=== PATIENT | male | born 1950 | race Caucasian/White ===

== ENCOUNTER 2024-06-26 16:42 | Inpatient (IN) ==
[2024-06-26 18:10] LABS: Basophils # (auto) 0.12 K/uL (0.00-0.20); Eosinophils # (auto) 0.38 K/uL (0.00-0.50); Hemoglobin 14.7 g/dl (14.0-18.0); Immature Granulocytes # (auto) 0.09 K/uL (0.01-0.20); Immature Granulocytes % (auto) 0.7 %; Lymphocytes % (auto) 17.6 %; Mean Corpuscular Hemoglobin 27.3 pg (25.0-34.0); Mean Corpuscular Hgb Conc 31.3 g/dL (32.0-36.0); Mean Corpuscular Volume 87.2 fL (80.0-100.0); Mean Platelet Volume 12.3 fL (9.4-12.4); Monocytes # (auto) 1.37 K/uL (0.11-0.59); Neutrophils # (auto) 8.31 K/uL (1.40-6.50); Neutrophils % (auto) 66.7 %; Platelet Count 126 K/uL (130-400); RDW Standard Deviation 44.8 fL (36.4-46.3); Red Blood Count 5.39 M/uL (4.70-6.10); White Blood Count 12.47 K/ul (4.8-10.8)
[2024-06-26 18:13] LABS: INR 1.1 (0.9-1.1); Partial Thromboplastin Ratio 0.7; Partial Thromboplastin Time 20 Seconds (21-31); Prothrombin Time 11.6 Seconds (9.0-12.0)
[2024-06-26 18:16] LABS: Alanine Aminotransferase 31 U/L (7-52); Albumin Globulin Ratio 0.6 (0.9-2); Albumin Level 3.8 gm/dl (3.4-5.0); Alkaline Phosphatase 192 U/L (34-104); Anion Gap 8 (3-11); Aspartate Aminotransferase 36 U/L (13-39); Bilirubin,Total 0.7 mg/dl (0.2-1.0); Blood Urea Nitrogen 37 mg/dl (6-23); Carbon Dioxide 34 mmol/L (21-32); Chloride 103 mmol/L (98-107); Est GFR (African American) 35.7 ml/min; Est GFR (Non-African American) 30.8 ml/min; Globulin 5.9 gm/dl (2.5-4.0); Glucose 101 mg/dl (70-99(Fasting)); Potassium 3.5 mmol/L (3.5-5.1); Sodium 145 mmol/L (136-145); Total Protein 9.7 gm/dl (6.0-8.3)
[2024-06-26] MEDS: SODIUM CHLORIDE 0.9% 500 ML IV ONE (18:40)
--- NOTE | 2024-06-26 19:05 | XRay Report ---
XR chest 1V portable CLINICAL HISTORY: fall TECHNIQUE: Single frontal radiograph of the chest was obtained. Comparison: None available at the time of this dictation. FINDINGS: No lines and tubes are seen. Calcified aortic knob is seen. The lungs are clear. No evidence of pleur al effusion or pneumothorax. IMPRESSION: No acute chest disease. ACT 112: Negative or not required by law. Electronically signed by: Xavier Hodge M.D. 06/26/2024 7:03 PM
[2024-06-26 19:12] LABS: Magnesium 2.3 mg/dl (1.7-2.4); Phosphorus 4.2 mg/dl (2.5-4.9)
[2024-06-26 19:16] LABS: Calcium 14.6 mg/dl (8.6-10.3)
[2024-06-26] MEDS: SODIUM CHLORIDE 0.9% 1,000 ML IV SCH (19:42)
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
[2024-06-26 20:03] LABS: Appearance Urine Cloudy (Clear); Bacteria Urine Automated None Seen (None Seen); Bilirubin Urine Negative (Negative); Blood Urine 2+ (Negative); Cast Urine Automated >20 /lpf (0-2); Color Urine Yellow; Glucose Urine UA Negative (Negative); Hyaline Casts Urine Present /lpf (None Presnt); Ketones Urine Negative (Negative); Leukocyte Esterase Urine 1+ (Negative); Nitrite Urine Negative (Negative); Protein Urine 2+ (Negative); Specific Gravity Urine 1.016 (1.000-1.030); Urobilinogen Urine Negative (Negative)
--- NOTE | 2024-06-26 21:04 | CT Scan Report ---
Exam(s): CT HEAD Without Contrast EXAM: CT Head Without Intravenous Contrast CLINICAL HISTORY: Reason for exam: fall. TECHNIQUE: Axial computed tomography images of the head/brain without intravenous contrast. CTDI is 36.67 mGy and DLP is 547.75 mGy-cm. Automated exposure control was utilized for the study. A dose lowering technique was utilized adhering to the principles of ALARA. COMPARISON: No relevant prior studies available. FINDINGS: Brain: Age-related parenchymal volume loss. Mild chronic small vessel ischemic change. Walter-white matter differentiation maintained. No hemorrhage, mass effect, parenchymal edema, or midline shift. Ventricles: Unremarkable. No hydrocephalus. Bones/joints: Unremarkable. No acute fracture. Soft tissues: Unremarkable. Vasculature: Intracranial atherosclerosis. Intracranial atherosclerosis. Sinuses: Trace mucosal thickening in the paranasal sinuses. Mastoid air cells: Unremarkable as visualized. No mastoid effusion. IMPRESSION: No acute intracranial process. Electronically signed by: Eliecer Franklin M.D. 06/26/24 21:03 PM
[2024-06-26] MEDS: OLANZapine ZYDIS 5 MG ORALLY DIS. TAB PO STA (21:12)
--- NOTE | 2024-06-26 22:25 | Billing Data ---
Date of Service June 26, 2024 Coding Level of Care Code 18354 INT INP/OBS CARE
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
[2024-06-26] MEDS ORDERED: ACETAMINOPHEN 325 MG TAB PO PRN (22:34)
[2024-06-26] MEDS: PLASMA-LYTE A 1,000 ML IV SCH (22:37)
[2024-06-26] MEDS: OLANZapine ZYDIS 5 MG ORALLY DIS. TAB PO PRN (23:52)
[2024-06-27 10:06] LABS: Basophils # (auto) 0.12 K/uL (0.00-0.20); Basophils % (auto) 1.1 %; Eosinophils # (auto) 0.73 K/uL (0.00-0.50); Eosinophils % (auto) 6.8 %; Hematocrit (blood only) 41.7 % (42.0-52.0); Hemoglobin 13.2 g/dl (14.0-18.0); Immature Granulocytes # (auto) 0.04 K/uL (0.01-0.20); Immature Granulocytes % (auto) 0.4 %; Lymphocytes # (auto) 2.56 K/uL (1.20-3.40); Lymphocytes % (auto) 23.9 %; Mean Corpuscular Hemoglobin 27.5 pg (25.0-34.0); Mean Corpuscular Hgb Conc 31.7 g/dL (32.0-36.0); Mean Corpuscular Volume 86.9 fL (80.0-100.0); Mean Platelet Volume 12.5 fL (9.4-12.4); Monocytes % (auto) 10.3 %; Neutrophils # (auto) 6.18 K/uL (1.40-6.50); Neutrophils % (auto) 57.5 %; Platelet Count 101 K/uL (130-400); RDW Coefficient of Variation 13.9 % (11.5-14.5); RDW Standard Deviation 44.5 fL (36.4-46.3); White Blood Count 10.73 K/ul (4.8-10.8)
[2024-06-27 10:26] LABS: BUN Creatinine Ratio 21.5 (10-20); Calcium 12.5 mg/dl (8.6-10.3); Creatinine Clr Calc Pharmacy 36.1 ml/min; Est GFR (African American) 42.6 ml/min; Est GFR (Non-African American) 36.8 ml/min; Potassium 3.4 mmol/L (3.5-5.1)
[2024-06-27] MEDS: NSS + 20MEQ KCL 20 MEQ/1,000 ML BAG IV SCH (17:24)
--- NOTE | 2024-06-27 19:48 | Hospitalist Progress Note ---
Date of Service June 27, 2024 Assessment & Plan (1) Hypercalcemia: Plan: improved but still high with his total protein and globulin being elevated, anemia/thrombocytopenia present, weight loss, etc this is all worrisome for a bone marrow disorder such as multiple myeloma SPEP/UPEP sent today intact PTH is low ruling out hyperparathyroidism 25-OH vit D level is not elevated cont copious isotonic fluid cont serial BMPs likely to need oncology evaluation, bone marrow bx, immunofixation, etc. doubt sarcoid although KD dispatched could consider PTH-related peptide but will defer since the available info suggests bone marrow disease as noted above (2) LATOSHA (acute kidney injury): Plan: BUN 37, creatinine 2.05 at admission most recent baseline Cr of 0.91 in [address] although obstruction unlikely Cr is improved today to <2 Cont copious hydration BMP am Consider imaging of urinary tract with u/s or CT (3) Agitation: Plan: likely due to #1 cont zyprexa prn (4) Leukocytosis: Plan: along with mild fever urine cx negative COVID returned negative cxr w/o obvious pneumonia if fevers persist consider more advanced imaging, tick-borne work-up, etc (5) Acute metabolic encephalopathy: Plan: likely 2nd to #1 above supportive care antipsychotics for agitation mitts for hands to prevent self-injury and pulling at IVs (6) Fever: Plan: etiology? could be malignancy-related consider tickborne work-up (lyme, anaplasmosis, etc) consider full biofire resp panel consider dental abscess given his severe dental decay Plan VTE PPx: SCDs; will hold chemical DVT PPx in the setting of thrombocytopenia h/o elevated PSA - if advanced imaging is obtained (ie - CTs) and there is evidence of malignancy consider repeat PSA as PSA was elevated at 7.6 in 2020 at his most recent outpatient appt, however, pt declined getting more w/u for t he high PSA updated pt's son extensively by phone this evening Admission and Anticipated Discharge Date Admission Date: June 26, 2024 Subjective patient confused all day today pulled out several IVs per staff requiring soft mitts on hands to prevent self-injury, pulling at IVs, etc during my rounds he was sleeping initially did open his eyes to his name being called but could not provide meaningful history or ROS he did deny pain was able to tell me what town he is from but otherwise did not know he was in the hospital speech very difficult to understand at times I spoke with pt's son by phone -- he reports his father had been getting progressively more confused over several weeks; poor appetite; weight loss; downward decline for weeks Review of Systems Review of Systems: Unobtainable due to cognitive status Physical Exam Physical Exam: gen - looks sick, confused, disheveled mouth - MM dry, VERY POOR DENTITION with odor from mouth neck - no JVD heart - RRR, s1 s2, no murmur lungs - CTA b/l abd - soft NT ND BS+; ?mild splenomegaly? ext - no edema, pulses 2+ b/l musculo - mitts on hands b/l, moves all 4 limbs spontaneously psych - oriented to person only Results & Data Results & Data Vital Signs (Past 12 Hours) Vital Signs Temp Pulse Pulse Resp BP Pulse Ox O2 Del Method 06/27/24 17:25 37.2 C 80 18 159/83 H 92 Room Air 06/27/24 15:19 77 06/27/24 08:07 37.8 C H 90 18 126/77 90 Room Air Laboratory Results Laboratory Results - last 24 hr 06/26/24 06/26/24 06/26/24 17:29 18:35 19:33 WBC RBC Hgb Hct MCV MCH MCHC RDW Std Deviation RDW Coeff of Zach Plt Count MPV Immature Gran % (Auto) Neut % (Auto) Lymph % (Auto) [place] % (Auto) Eos % (Auto) Baso % (Auto) Neut # (Auto) Lymph # (Auto) [place] # (Auto) Eos # (Auto) Baso # (Auto) Immature Gran # (Auto) Sodium Potassium Chloride Carbon Dioxide Anion Gap BUN Creatinine Est Cr Clr Drug Dosing Est GFR ( Amer) Est GFR (Non-Af Amer) BUN/Creatinine Ratio Glucose Calcium Total Protein (PEP) Albumin (PEP) Ojpum-5-Bvszcdtzx Uckas-1-Qlkvawncl Rbvm-8-[place]ibcuway Plmp-0-Tfrnreyg Gamma Globulins Monoclonal Peak 3 Ser Monoclonl Protein Ser Monoclonal Prot 2 PEP Interpretation Angiotensin Convert Enz 25-OH Vitamin D Total 31.2 PTH Intact Urine Color Yellow Urine Appearance Cloudy A Urine pH 5.0 Ur Specific [place] 1.016 Urine Protein 2+ H Urine Glucose (UA) Negative Urine Ketones Negative Urine Blood 2+ H Urine Nitrite Negative Urine Bilirubin Negative Urine Urobilinogen Negative Ur Leukocyte Esterase 1+ H Urine WBC (Auto) 11-20 H Urine RBC (Auto) 6-10 H U Hyaline Cast (Auto) >20 H U Epithel Cells (Auto) 3-5 H Urine Bacteria (Auto) None Seen Hyaline Casts Present A SARS-CoV-2, RNA, NAAT Ref Lab Test Result Cancelled 06/27/24 06/27/24 09:33 Unknown WBC 10.73 RBC 4.80 Hgb 13.2 L Hct 41.7 L MCV 86.9 MCH 27.5 MCHC 31.7 L RDW Std Deviation 44.5 RDW Coeff of Zach 13.9 Plt Count 101 L MPV 12.5 H Immature Gran % (Auto) 0.4 Neut % (Auto) 57.5 Lymph % (Auto) 23.9 [place] % (Auto) 10.3 Eos % (Auto) 6.8 Baso % (Auto) 1.1 Neut # (Auto) 6.18 Lymph # (Auto) 2.56 [place] # (Auto) 1.10 H Eos # (Auto) 0.73 H Baso # (Auto) 0.12 Immature Gran # (Auto) 0.04 Sodium 149 H Potassium 3.4 L Chloride 111 H Carbon Dioxide 32 Anion Gap 6 BUN 38 H Creatinine 1.77 H Est Cr Clr Drug Dosing 36.1 Est GFR ( Amer) 42.6 Est GFR (Non-Af Amer) 36.8 BUN/Creatinine Ratio 21.5 H Glucose 93 Calcium 12.5 H* D Total Protein (PEP) Pending Albumin (PEP) Pending Mksdn-6-Oskepchat Pending Syepj-6-Yjzpjfbay Pending Ycpj-0-Xsgzjzap Pending Ykuz-2-Bdsoryiv Pending Gamma Globulins Pending Monoclonal Peak 3 Pending Ser Monoclonl Protein Pending Ser Monoclonal Prot 2 Pending PEP Interpretation Pending Angiotensin Convert Enz Pending 25-OH Vitamin D Total PTH Intact 8.8 L Urine Color Urine Appearance Urine pH Ur Specific [place] Urine Protein Urine Glucose (UA) Urine Ketones Urine Blood Urine Nitrite Urine Bilirubin Urine Urobilinogen Ur Leukocyte Esterase Urine WBC (Auto) Urine RBC (Auto) U Hyaline Cast (Auto) U Epithel Cells (Auto) Urine Bacteria (Auto) Hyaline Casts SARS-CoV-2, RNA, NAAT NEGATIVE Ref Lab Test Result PG Care Time/CCT Total # of Minutes Spent Total Time Spent with Patient: Total time spent is greater than 50% in coordination of care (as documented) at patient's floor/unit and/or counseling patient: Coding Level of Care Code 33828 SUB INP/OBS CARE 3/50MIN Diagnoses Hypercalcemia E83.52 LATOSHA (acute kidney injury) N17.9 Agitation R45.1 Leukocytosis D72.829 Acute metabolic encephalopathy G93.41 Fever R50.9
--- NOTE | 2024-06-27 21:33 | Electrocardiogram Report ---
Test Reason : Blood Pressure : */* mmHG Vent. Rate : 89 BPM Atrial Rate : 89 BPM P-R Int : 164 ms QRS Dur : 104 ms QT Int : 348 ms P-R-T Axes : -9 -9 -42 degrees QTcB Int : 423 ms Poor data quality, interpretation may be adversely affected Normal sinus rhythm Inferior infarct , age undetermined Cannot rule out Anterior infarct , age undetermined Nonspecific T wave abnormality Abnormal ECG No previous ECGs available Confirmed by Hernan Delacruz ([id number]) on 06/27/2024 9:33:40 PM Referred By: Confirmed By: Hernan Delacruz
[2024-06-27] MEDS ORDERED: cefTRIAXone SODIUM 1,000 MG/50 ML BAG IV ONE (23:45)
[2024-06-28] MEDS: ACETAMINOPHEN 1,000 MG/100 ML VIAL IV PRN (00:02)
[2024-06-28] MEDS: cefTRIAXone SODIUM 1,000 MG/50 ML BAG IV SCH (00:03)
[2024-06-28 08:38] LABS: Basophils # (auto) 0.12 K/uL (0.00-0.20); Basophils % (auto) 1.2 %; Eosinophils # (auto) 0.57 K/uL (0.00-0.50); Eosinophils % (auto) 5.6 %; Hematocrit (blood only) 40.6 % (42.0-52.0); Hemoglobin 13.1 g/dl (14.0-18.0); Immature Granulocytes # (auto) 0.05 K/uL (0.01-0.20); Immature Granulocytes % (auto) 0.5 %; Lymphocytes # (auto) 2.63 K/uL (1.20-3.40); Lymphocytes % (auto) 25.8 %; Mean Corpuscular Hemoglobin 28.1 pg (25.0-34.0); Mean Corpuscular Hgb Conc 32.3 g/dL (32.0-36.0); Mean Corpuscular Volume 86.9 fL (80.0-100.0); Mean Platelet Volume 11.7 fL (9.4-12.4); Monocytes # (auto) 1.02 K/uL (0.11-0.59); Neutrophils # (auto) 5.79 K/uL (1.40-6.50); Neutrophils % (auto) 56.9 %; Platelet Count 108 K/uL (130-400); RDW Coefficient of Variation 14.2 % (11.5-14.5); RDW Standard Deviation 45.2 fL (36.4-46.3); Red Blood Count 4.67 M/uL (4.70-6.10); White Blood Count 10.18 K/ul (4.8-10.8)
--- NOTE | 2024-06-28 09:09 | XRay Report ---
XR chest 1V portable CLINICAL HISTORY: fever, mild hypoxia; ?pneumonia TECHNIQUE: Single frontal radiograph of the chest was obtained. Comparison: Comparison is made to chest radiograph 06/26/2024 FINDINGS: No lines and tubes are seen. Calcified aortic knob is seen. The lungs are clear. No evidence of pleur al effusion or pneumothorax. IMPRESSION: No acute abnormalities and in particular no radiographic evidence of pneumonia. ACT 112: Negative or not required by law. Electronically signed by: Xavier Hodge M.D. 06/28/2024 9:08 AM
[2024-06-28 09:56] LABS: Calcium 11.9 mg/dl (8.6-10.3); Potassium 3.5 mmol/L (3.5-5.1)
[2024-06-28 10:02] LABS: Creatinine Clr Calc Pharmacy 34.9 ml/min; Est GFR (African American) 40.9 ml/min; Est GFR (Non-African American) 35.3 ml/min
--- NOTE | 2024-06-28 11:16 | Hospitalist Progress Note ---
Date of Service June 28, 2024 Assessment & Plan (1) Hypercalcemia: Plan: improving but still high with his total protein and globulin being elevated, anemia/thrombocytopenia present, weight loss, etc this is all worrisome for a bone marrow disorder such as multiple myeloma SPEP/UPEP sent & pending intact PTH is low ruling out hyperparathyroidism 25-OH vit D level is not elevated cont IV Fluids cont serial BMPs likely to need oncology evaluation, bone marrow bx, immunofixation, etc. doubt sarcoid although KD level dispatched could consider PTH-related peptide but will defer since the available info suggests bone marrow disease as noted above renal function is borderline to start IV bisphosphonate therapy at this time will start calcitonin 4 units/KG q12h for temporary Rx (2) LATOSHA (acute kidney injury): Plan: BUN 37, creatinine 2.05 at admission most recent baseline Cr of 0.91 in [address] a/p today Solis remains Cr has improved to 1.8 with hydration but has stalled at such Cont IV fluids Cont serial BMP checks (3) Agitation: Plan: likely due to #1 cont zyprexa prn (4) Leukocytosis: Plan: along with ongoing mild fevers urine cx negative COVID negative cxr w/o obvious pneumonia lyme negative anaplasmosis & babesia screens negative elected to obtain CT chest/abd/pelvis to look for malignancy and other causes of fever - CT a/p with ?pancreatitis, otherwise negative; CT chest report pending (5) Acute metabolic encephalopathy: Plan: likely 2nd to #1 above if pancreatitis is truly present that could contribute hypernatremia will cause confusion/lethargy cont supportive care restraint order renewed -- soft mitts for hands needed to prevent self-injury and pulling at IVs (6) Fever: Plan: etiology? could be malignancy-related could be 2nd to pancreatitis consider full biofire resp panel consider dental abscess given his severe dental decay cont rocephin IV empirically while awaiting blood cx's thus far blood cx's are negative (7) Hypernatremia: Plan: change fluids to hypotonic - use 1/2 NS serial BMPs (8) Abnormal abdominal CT scan: Plan: ?pancreatitis on CT a/p today certainly hypercalcemia can cause pancreatitis but his lipase was wnl this morning further, no obvious abd pain or other GI symptoms uncertain of significance of the CT findings if he has pancreatitis he is essentially NPO and receiving copious IV hydration (9) Elevated blood pressure reading without diagnosis of hypertension: Plan: SBPs remain very high - 180s/190s 2nd to hypercalcemia? does patient have pre-existing essential HTN? will start metoprolol 5mg IV q6h scheduled will also add hydralazine 5mg IV q8h prn SBP >185 Plan updated pt's son extensively by phone 06/27/24 will update him again tomorrow Admission and Anticipated Discharge Date Admission Date: June 26, 2024 Subjective patient sleeping soundly / lethargic during the visit unable to provide any meaningful history or ROS when he wakes it is for brief periods of time and he is very confused no oral intake tele - stable, NSR overnight Review of Systems Review of Systems: Unobtainable due to cognitive status Physical Exam Physical Exam: gen - lethargic, confused, somnolent - but comfortable mouth - MM remain dry, VERY POOR DENTITION with odor from mouth neck - no JVD heart - RRR, s1 s2, no murmur lungs - CTA b/l, mildly decreased BS basees abd - soft NT ND BS+ ext - no edema, pulses 2+ b/l musculo - mitts on hands b/l Results & Data Results & Data Vital Signs (Past 12 Hours) Vital Signs Temp Pulse Pulse Resp BP Pulse Ox O2 Del Method 06/28/24 09:18 37.9 C H 90 18 166/88 H 92 Room Air 06/28/24 07:41 38.5 C H 97 H 18 193/93 H 90 Room Air 06/28/24 07:21 91 H 06/28/24 02:00 Room Air Laboratory Results Laboratory Results - last 24 hr 06/28/24 06/28/24 07:52 19:18 WBC 10.18 RBC 4.67 L Hgb 13.1 L Hct 40.6 L MCV 86.9 MCH 28.1 MCHC 32.3 RDW Std Deviation 45.2 RDW Coeff of Zach 14.2 Plt Count 108 L MPV 11.7 Immature Gran % (Auto) 0.5 Neut % (Auto) 56.9 Lymph % (Auto) 25.8 [place] % (Auto) 10.0 Eos % (Auto) 5.6 Baso % (Auto) 1.2 Neut # (Auto) 5.79 Lymph # (Auto) 2.63 [place] # (Auto) 1.02 H Eos # (Auto) 0.57 H Baso # (Auto) 0.12 Immature Gran # (Auto) 0.05 VBG pH 7.45 H VBG pCO2 42 VBG pO2 56 VBG HCO3 29 VBG O2 Saturation 90.4 VBG Base Excess 4.7 Sodium 155 H 156 H* Potassium 3.5 3.6 Chloride 121 H 124 H Carbon Dioxide 29 27 Anion Gap 5 5 BUN 44 H 41 H Creatinine 1.83 H 1.81 H Est Cr Clr Drug Dosing 34.9 35.3 Est GFR ( Amer) 40.9 41.5 Est GFR (Non-Af Amer) 35.3 35.8 BUN/Creatinine Ratio 24.0 H 22.7 H Glucose 81 119 H Calcium 11.9 H 11.8 H Lipase 17 TSH 0.721 Anaplasma Smear See Comment Babesia Smear See Comment Lyme Disease Screen Negative Diagnostic Findings Chest X-Ray 06/28/24 07:57 XR chest 1V portable CLINICAL HISTORY: fever, mild hypoxia; ?pneumonia TECHNIQUE: Single frontal radiograph of the chest was obtained. Comparison: Comparison is made to chest radiograph 06/26/2024 FINDINGS: No lines and tubes are seen. Calcified aortic knob is seen. The lungs are clear. No evidence of pleural effusion or pneumothorax. IMPRESSION: No acute abnormalities and in particular no radiographic evidence of pneumonia. ACT 112: Negative or not required by law. Electronically signed by: Xavier Hodge M.D. 06/28/2024 9:08 AM Abdomen/Pelvis CT 06/28/24 11:16 CT abd pelvis wo con CLINICAL HISTORY: fever, altered MS, possible multiple myeloma TECHNIQUE: Helical axial images of the abdomen and pelvis were obtained. Automated dose lowering techniques and/or adjustment according to patient size were utilized for this exam. This exam was performed without intravenous contrast. CT DOSE: 2480.81 mGy.cm COMPARISON: None available at the time of this dictation. FINDINGS: Lower chest: For findings above the diaphragm, please see CT chest performed same day. Liver: Unremarkable. No focal lesions are seen. Gallbladder and biliary tree: No calcified gallstones. Normal caliber wall. No intra- or extrahepatic biliary ductal dilation. Pancreas: Fat stranding is seen about the pancreatic tail. Spleen: Unremarkable. Adrenals: Unremarkable. Kidneys and ureters: Nonobstructive nephrolithiasis is seen. Bladder: Solis catheter is seen. Reproductive organs: Prostatomegaly is seen. Bowel: Diverticulosis is seen without diverticulitis. The appendix is normal. Lymph nodes Retroperitoneal: Subcentimeter lymph nodes are noted. Pelvic: Unremarkable. Mesenteric: Unremarkable. Peritoneum: Normal. Vessels: Atherosclerotic calcifications are seen. Abdominal wall: Left fat containing inguinal hernia. Bones: Degenerative changes in the visualized spine. IMPRESSION: Stranding is seen about the pancreatic tail concerning for pancreatitis. No drainable fluid collections are seen. Additional findings as above. ACT 112: Negative or not required by law. Electronically signed by: Xavier Hodge M.D. 06/28/2024 2:48 PM PG Care Time/CCT Total # of Minutes Spent Total Time Spent with Patient: Total time spent is greater than 50% in coordination of care (as documented) at patient's floor/unit and/or counseling patient: Coding Level of Care Code 49039 SUB INP/OBS CARE 3/50MIN Diagnoses Hypercalcemia E83.52 LATOSHA (acute kidney injury) N17.9 Agitation R45.1 Leukocytosis D72.829 Acute metabolic encephalopathy G93.41 Fever R50.9 Hypernatremia E87.[address] scan R93.5 Elevated blood pressure reading without diagnosis of hypertension R03.0
[2024-06-28] MEDS: D5W AND 1/2NSS + 20MEQ KCL 20 MEQ/1,000 ML BAG IV SCH (11:22)
--- NOTE | 2024-06-28 14:49 | CT Scan Report ---
CT abd pelvis wo con CLINICAL HISTORY: fever, altered MS, possible multiple myeloma TECHNIQUE: Helical axial images of the abdomen and pelvis were obtained. Automated dose lowering tech niques and/or adjustment according to patient size were utilized for this exam. This exam was perfor med without intravenous contrast. CT DOSE: 2480.81 mGy.cm COMPARISON: None available at the time of this dictation. FINDINGS: Lower chest: For findings above the diaphragm, please see CT chest performed same day. Liver: Unremarkable. No focal lesions are seen. Gallbladder and biliary tree: No calcified gallstones. Normal caliber wall. No intra- or extrahepatic biliary ductal dilation. Pancreas: Fat stranding is seen about the pancreatic tail. Spleen: Unremarkable. Adrenals: Unremarkable. Kidneys and ureters: Nonobstructive nephrolithiasis is seen. Bladder: Solis catheter is seen. Reproductive organs: Prostatomegaly is seen. Bowel: Diverticulosis is seen without diverticulitis. The appendix is normal. Lymph nodes Retroperitoneal: Subcentimeter lymph nodes are noted. Pelvic: Unremarkable. Mesenteric: Unremarkable. Peritoneum: Normal. Vessels: Atherosclerotic calcifications are seen. Abdominal wall: Left fat containing inguinal hernia. Bones: Degenerative changes in the visualized spine. IMPRESSION: Stranding is seen about the pancreatic tail concerning for pancreatitis. No drainable fluid collectio ns are seen. Additional findings as above. ACT 112: Negative or not required by law. Electronically signed by: Xavier Hodge M.D. 06/28/2024 2:48 PM
[2024-06-28] MEDS: METOPROLOL TARTRATE 1 MG/ML VIAL IV SCH (17:20)
[2024-06-28 19:34] LABS: Base Excess VBG 4.7 mEq/L; HCO3 VBG 29 mmol/L; Oxygen Saturation VBG 90.4 %; PCO2 VBG 42 mmHg (38-50); PO2 VBG 56 mmHg; pH VBG 7.45 (7.36-7.41)
[2024-06-28] MEDS: hydrALAZINE HCL 20 MG/ML VIAL IV ONE (19:36)
[2024-06-28 19:57] LABS: BUN Creatinine Ratio 22.7 (10-20); Calcium 11.8 mg/dl (8.6-10.3); Creatinine Clr Calc Pharmacy 35.3 ml/min; Est GFR (African American) 41.5 ml/min; Est GFR (Non-African American) 35.8 ml/min; Potassium 3.6 mmol/L (3.5-5.1)
[2024-06-28] MEDS ORDERED: POTASSIUM CHLORIDE 20 MEQ in DEXTROSE 5% 1,000 ML IV SCH (20:15)
[2024-06-28 20:18] LABS: Thyroid Stimulating Hormone 0.721 uIu/ml (0.300-4.500)
[2024-06-28] MEDS: CALCITONIN SALMON 400 UNITS/2 ML SQ SCH (21:29)
[2024-06-28] MEDS: cefTRIAXone SODIUM 2,000 MG/50 ML BAG IV SCH (21:29)
[2024-06-28] MEDS: POTASSIUM CHLORIDE 20 MEQ in D5W AND 0.2% NaCL 1,000 ML IV SCH (22:55)
[2024-06-29 01:34] LABS: BUN Creatinine Ratio 22.2 (10-20); Calcium 11.2 mg/dl (8.6-10.3); Creatinine Clr Calc Pharmacy 37.3 ml/min; Est GFR (African American) 44.4 ml/min; Est GFR (Non-African American) 38.3 ml/min; Potassium 3.4 mmol/L (3.5-5.1)
[2024-06-29] MEDS: POTASSIUM CHLORIDE / WTR 10 MEQ/100 ML PLCT IV ONE (03:06)
[2024-06-29] MEDS: OLANZapine 10 MG/2.1 ML SDV IM ONE (03:52)
[2024-06-29] MEDS: POTASSIUM CHLORIDE 20 MEQ in DEXTROSE 5% 1,000 ML IV SCH (06:19)
--- NOTE | 2024-06-29 06:46 | CT Scan Report ---
CT OF THE CHEST WITHOUT IV CONTRAST CLINICAL HISTORY: Fever, possible multiple myeloma. COMPARISON STUDY: Chest radiograph performed earlier today. TECHNIQUE: Axial images of the chest were obtained without IV contrast. Images were reviewed in the axial, sagittal, and coronal planes. IV contrast was not administered for this examination. Automat ed exposure control was utilized for the study. A dose lowering technique was utilized adhering to t he principles of ALARA. FINDINGS: The heart is moderately enlarged. There is no pericardial effusion. There are multiple enl arged mediastinal and right axillary lymph nodes. Index right axillary node on image 93 of 237 measur es 1.8 x 1.7 cm. A right paratracheal lymph node on image 72 measures 1.8 x 1.4 cm. A subcarinal node measures approximately 3.2 x 1.9 cm. Subpleural opacities within lungs favor atelectasis. There is n o consolidation to suggest pneumonia. There are no suspicious pulmonary nodules. Lungs are suboptimal ly assessed due to respiratory motion there are also mildly enlarged bilateral hilar lymph nodes, sub optimally assessed on this unenhanced exam. There are no suspicious lesions within the visualized bon y thorax. There are multiple mildly enlarged upper abdominal lymph nodes. There is moderate stranding adjacent to the visualized portions of the pancreas, better depicted on the CT of the abdomen and pe lvis. IMPRESSION: 1. No suspicious osseous lesions within the bony thorax. 2. Right axillary, mediastinal, bilateral hilar and upper abdominal lymphadenopathy. This is nonspeci fic although raises the possibility of a lymphoproliferative process. 3. Subpleural opacities within the lungs consistent with atelectasis. No consolidation to suggest pne umonia. 4. Peripancreatic stranding with multiple enlarged peripancreatic lymph nodes. This may reflect pancr eatitis although the CT appearance is nonspecific. ACT 112: Negative or not required by law. Electronically signed by: Ramón Becerra M.D. 06/29/2024 6:44 AM
[2024-06-29 08:41] LABS: Basophils # (auto) 0.14 K/uL (0.00-0.20); Basophils % (auto) 1.3 %; Eosinophils # (auto) 0.39 K/uL (0.00-0.50); Eosinophils % (auto) 3.6 %; Hematocrit (blood only) 43.7 % (42.0-52.0); Hemoglobin 13.7 g/dl (14.0-18.0); Immature Granulocytes # (auto) 0.03 K/uL (0.01-0.20); Immature Granulocytes % (auto) 0.3 %; Lymphocytes # (auto) 2.15 K/uL (1.20-3.40); Lymphocytes % (auto) 19.6 %; Mean Corpuscular Hemoglobin 27.7 pg (25.0-34.0); Mean Corpuscular Hgb Conc 31.4 g/dL (32.0-36.0); Mean Corpuscular Volume 88.3 fL (80.0-100.0); Mean Platelet Volume 11.3 fL (9.4-12.4); Monocytes # (auto) 1.02 K/uL (0.11-0.59); Monocytes % (auto) 9.3 %; Neutrophils # (auto) 7.23 K/uL (1.40-6.50); Neutrophils % (auto) 65.9 %; Platelet Count 102 K/uL (130-400); RDW Coefficient of Variation 14.6 % (11.5-14.5); RDW Standard Deviation 46.5 fL (36.4-46.3); Red Blood Count 4.95 M/uL (4.70-6.10); White Blood Count 10.96 K/ul (4.8-10.8)
[2024-06-29 09:46] LABS: BUN Creatinine Ratio 21.7 (10-20); Calcium 10.5 mg/dl (8.6-10.3); Creatinine Clr Calc Pharmacy 39.6 ml/min; Est GFR (African American) 47.8 ml/min; Est GFR (Non-African American) 41.2 ml/min; Potassium 3.4 mmol/L (3.5-5.1)
[2024-06-29] MEDS ORDERED: METOPROLOL TARTRATE 1 MG/ML VIAL IV PRN (10:46)
[2024-06-29] MEDS: ZOLEDRONIC ACID 4 MG in SODIUM CHLOR 0.9% MINI-B 100 ML IV ONE (10:47)
[2024-06-29] MEDS: hydrALAZINE HCL 20 MG/ML VIAL IV PRN (12:03)
--- NOTE | 2024-06-29 12:18 | Hospitalist Progress Note ---
Date of Service June 29, 2024 Assessment & Plan (1) Hypercalcemia: Plan: resolved s/p IV fluids since admission, calcitonin SC with renal function improved will give zometa 4mg IV x 1 to keep calcium levels in check with his total protein and globulin being elevated, anemia/thrombocytopenia present, weight loss, etc this is all worrisome for a bone marrow disorder such as multiple myeloma SPEP/UPEP sent & pending intact PTH is low ruling out hyperparathyroidism 25-OH vit D level is not elevated cont IV Fluids cont serial BMPs likely to need oncology evaluation, bone marrow bx, immunofixation, etc IF patient desires; son has told me 2x that his father will likely decline any work-up/treatment/etc. doubt sarcoid although KD level dispatched could consider PTH-related peptide but will defer since the available info suggests bone marrow disease as noted above stop calcitonin since calcium is just about normal today (2) LATOSHA (acute kidney injury): Plan: BUN 37, creatinine 2.05 at admission most recent baseline Cr of 0.91 in [address] a/p [facility] remains Cr has improved to 1.6 with hydration Cont IV fluids Cont serial BMP checks (3) Agitation: Plan: likely due to hypercalcemia, hypernatremia, etc. 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 (4) Leukocytosis: Plan: resolved did have recent fevers but no infectious process found urine cx negative COVID negative cxr w/o obvious pneumonia lyme negative anaplasmosis & babesia screens negative elected to obtain CT chest/abd/pelvis to look for malignancy and other causes of fever - CT a/p with ?pancreatitis, otherwise negative; CT chest with extensive lymphadenopathy in various lymph groups - worrisome for lymphoproliferative d/o which could in and of itself cause fever cont rocephin empirically for now (5) Acute metabolic encephalopathy: Plan: as above if pancreatitis is truly present that could contribute hypernatremia will cause confusion/lethargy cont supportive care restraint order renewed -- soft mitts for hands needed to prevent self-injury and pulling at IVs (6) Fever: Plan: etiology? could be malignancy-related could be 2nd to pancreatitis consider full biofire resp panel consider dental abscess given his severe dental decay cont rocephin IV empirically while awaiting blood cx's thus far blood cx's are negative (7) Hypernatremia: Plan: changed fluids overnight to D5W peak Na level 159 now 157 cont rate of 150cc/hr serial BMPs (8) Abnormal abdominal CT scan: Plan: ?pancreatitis on CT a/p certainly hypercalcemia can cause pancreatitis but his lipase was wnl this morning further, no obvious abd pain or other GI symptoms uncertain of significance of the CT findings if he has pancreatitis will only start clear liquid diet cont IV fluids (9) Elevated blood pressure reading without diagnosis of hypertension: Plan: SBPs remain very high - 180s/190s 2nd to hypercalcemia? does patient have pre-existing essential HTN? or is BP high simply due to agitation? metoprolol 5mg IV q6h prn hydralazine 5mg IV q8h prn Plan updated pt's son extensively by phone 06/27/24 and again this evening, 06/29/24 Admission and Anticipated Discharge Date Admission Date: June 26, 2024 Subjective tele overnight wnl patient VERY agitated this am, yelling out, saying nonsensical things did require IM zyprexa overnight pt unable to provide any meaningful history or ROS I could not understand anything he was saying Review of Systems Review of Systems: Unobtainable due to cognitive status Physical Exam Physical Exam: gen - very awake today, eyes open, but confused (severe) - yelling out at times mouth - MM remain dry, VERY POOR DENTITION with malodor from mouth neck - no JVD heart - RRR, s1 s2, no murmur lungs - CTA b/l abd - soft NT ND BS+ ext - no edema, pulses 2+ b/l musculo - mitts on hands b/l psych - oriented to person only, staring at me during the visit, looks nearly paranoid Results & Data Results & Data Vital Signs (Past 12 Hours) Vital Signs Temp Pulse Pulse Resp BP BP Pulse Ox 06/29/24 11:14 37.0 C 76 18 176/100 H 197/106 H 95 06/29/24 10:34 85 06/29/24 09:40 36.9 C 71 18 155/88 H 93 06/29/24 04:29 36.7 C 86 18 160/89 H 93 O2 Del Method O2 Flow Rate 06/29/24 11:14 Nasal Cannula 1 06/29/24 10:34 06/29/24 09:40 Nasal Cannula 1 06/29/24 04:29 Nasal Cannula 1 Laboratory Results Laboratory Results - last 24 hr 06/28/24 06/28/24 06/29/24 07:52 19:18 00:53 WBC RBC Hgb Hct MCV MCH MCHC RDW Std Deviation RDW Coeff of Zach Plt Count MPV Immature Gran % (Auto) Neut % (Auto) Lymph % (Auto) Lynn % (Auto) Eos % (Auto) Baso % (Auto) Neut # (Auto) Lymph # (Auto) Lynn # (Auto) Eos # (Auto) Baso # (Auto) Immature Gran # (Auto) VBG pH 7.45 H VBG pCO2 42 VBG pO2 56 VBG HCO3 29 VBG O2 Saturation 90.4 VBG Base Excess 4.7 Sodium 156 H* 157 H* Potassium 3.6 3.4 L Chloride 124 H 124 H Carbon Dioxide 27 25 Anion Gap 5 8 BUN 41 H 38 H Creatinine 1.81 H 1.71 H Est Cr Clr Drug Dosing 35.3 37.3 Est GFR ( Amer) 41.5 44.4 Est GFR (Non-Af Amer) 35.8 38.3 BUN/Creatinine Ratio 22.7 H 22.2 H Glucose 119 H 144 H Calcium 11.8 H 11.2 H Ammonia 45.0 Total Creatine Kinase 199 Lipase 17 TSH 0.721 06/29/24 07:47 WBC 10.96 H RBC 4.95 Hgb 13.7 L Hct 43.7 MCV 88.3 MCH 27.7 MCHC 31.4 L RDW Std Deviation 46.5 H RDW Coeff of Zach 14.6 H Plt Count 102 L MPV 11.3 Immature Gran % (Auto) 0.3 Neut % (Auto) 65.9 Lymph % (Auto) 19.6 Lynn % (Auto) 9.3 Eos % (Auto) 3.6 Baso % (Auto) 1.3 Neut # (Auto) 7.23 H Lymph # (Auto) 2.15 Lynn # (Auto) 1.02 H Eos # (Auto) 0.39 Baso # (Auto) 0.14 Immature Gran # (Auto) 0.03 VBG pH VBG pCO2 VBG pO2 VBG HCO3 VBG O2 Saturation VBG Base Excess Sodium 159 H* Potassium 3.4 L Chloride 126 H Carbon Dioxide 27 Anion Gap 6 BUN 35 H Creatinine 1.61 H Est Cr Clr Drug Dosing 39.6 Est GFR ( Amer) 47.8 Est GFR (Non-Af Amer) 41.2 BUN/Creatinine Ratio 21.7 H Glucose 137 H Calcium 10.5 H Ammonia Total Creatine Kinase Lipase TSH PG Care Time/CCT Total # of Minutes Spent Total Time Spent with Patient: Total time spent is greater than 50% in coordination of care (as documented) at patient's floor/unit and/or counseling patient: Coding Level of Care Code 36500 SUB INP/OBS CARE 3/50MIN Diagnoses Hypercalcemia E83.52 LATOSHA (acute kidney injury) N17.9 Agitation R45.1 Leukocytosis D72.829 Acute metabolic encephalopathy G93.41 Fever R50.9 Hypernatremia E87.[address] scan R93.5 Elevated blood pressure reading without diagnosis of hypertension R03.0
[2024-06-29] MEDS: THIAMINE HCL 500 MG in SODIUM CHLORIDE 0.9% 50 ML IV SCH (14:04)
[2024-06-29] MEDS: METOPROLOL TARTRATE 25 MG TAB PO SCH (14:04)
[2024-06-29] MEDS: OLANZapine 10 MG/2.1 ML SDV IM STA (14:46)
[2024-06-29 16:16] LABS: BUN Creatinine Ratio 21.2 (10-20); Calcium 10.2 mg/dl (8.6-10.3); Creatinine Clr Calc Pharmacy 42.3 ml/min; Est GFR (African American) 51.6 ml/min; Est GFR (Non-African American) 44.5 ml/min; Potassium 3.5 mmol/L (3.5-5.1)
[2024-06-29] MEDS: OLANZapine 10 MG/2.1 ML SDV IM SCH (22:23)
[2024-06-30 07:58] LABS: BUN Creatinine Ratio 17.2 (10-20); Calcium 9.6 mg/dl (8.6-10.3); Est GFR (African American) 54.2 ml/min; Est GFR (Non-African American) 46.8 ml/min; Potassium 3.6 mmol/L (3.5-5.1)
--- NOTE | 2024-06-30 14:13 | Hospitalist Progress Note ---
Date of Service June 30, 2024 Assessment & Plan (1) Hypercalcemia: Plan: resolved s/p IV fluids since admission, calcitonin SC, and zometa 4mg IV x 1 to keep calcium levels in check over the next few weeks with his total protein and globulin being elevated, anemia/thrombocytopenia present, weight loss, etc this is all worrisome for a bone marrow disorder such as multiple myeloma, lymphoma, etc. SPEP/UPEP sent & pending flow cytometry sent & pending intact PTH is low ruling out hyperparathyroidism 25-OH vit D level is not elevated cont hypotonic IV Fluids cont serial BMPs likely to need oncology evaluation, bone marrow bx, immunofixation, etc IF p atient desires; son has told me 2x that his father will likely decline any work- up/treatment/etc. doubt sarcoid although KD level dispatched could consider PTH-related peptide but will defer since the available info suggests bone marrow disease as noted above stop calcitonin since calcium is normal (2) LATOSHA (acute kidney injury): Plan: BUN 37, creatinine 2.05 at admission most recent baseline Cr of 0.91 in [address] a/p [facility] remains Cr has improved to 1.45 with hydration Cont IV fluids Cont serial BMP checks (3) Agitation: Plan: likely due to hypercalcemia, hypernatremia, etc. 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 (4) Leukocytosis: Plan: resolved did have recent fevers but no infectious process found urine cx negative COVID negative cxr w/o obvious pneumonia lyme negative anaplasmosis & babesia screens negative elected to obtain CT chest/abd/pelvis to look for malignancy and other causes of fever - CT a/p with ?pancreatitis, otherwise negative; CT chest with extensive lymphadenopathy in various lymph groups - worrisome for lymphoproliferative d/o which could in and of itself cause fever cont rocephin empirically for now -- dental infection (with very poor teeth and very foul odor from mouth) ?? (5) Acute metabolic encephalopathy: Plan: as above ongoing if pancreatitis is truly present that could contribute hypernatremia will cause confusion/lethargy recent hypercalcemia will cause such for sure cont supportive care restraint order renewed -- soft mitts for hands needed to prevent self-injury and pulling at IVs (6) Fever: Plan: etiology? could be malignancy-related could be 2nd to pancreatitis consider full biofire resp panel consider dental abscess given his severe dental decay cont rocephin IV empirically while awaiting blood cx's thus far blood cx's are negative (7) Hypernatremia: Plan: cont D5W at 150cc/hr peak Na level 159 now 153 serial BMPs (8) Abnormal abdominal CT scan: Plan: ?pancreatitis on CT a/p certainly hypercalcemia can cause pancreatitis but his lipase was wnl this morning further, no obvious abd pain or other GI symptoms uncertain of significance of the CT findings cont IV fluids clear liquids if he wants to take such (9) Elevated blood pressure reading without diagnosis of hypertension: Plan: SBPs remain very high - 180s/190s 2nd to hypercalcemia? does patient have pre-existing essential HTN? or is BP high simply due to agitation? hydralazine 5mg IV q8h prn Plan updated pt's son extensively by phone 06/27/24 and again 06/29/24 d/c tele move to med/surg -- this should help w/ mentation very poor prognosis Admission and Anticipated Discharge Date Admission Date: June 26, 2024 Subjective tele overnight wnl patient remains agitated even before I entered his room I could hear him yelling when I saw him at bedside he said "get the f--- out of here" he was very difficult to understand -- speech is garbled he said something about "no one is helping" I did not examine him due to the severe agitation and concern for my safety soft mitts remain in place due to his severe agitation and previous pulling out IVs, etc Review of Systems Review of Systems: Unobtainable due to cognitive status Physical Exam Physical Exam: gen - awake, agitated, yelling, getting angry, wearing soft mitts on hands, waving his arms in the air psych - oriented to person only mouth - poor dentition, MM still look dry rest of exam deferred Results & Data Results & Data Vital Signs (Past 12 Hours) Vital Signs Temp Pulse Pulse Resp BP Pulse Ox O2 Del Method 06/30/24 11:51 37.0 C 97 H 16 160/81 H 95 Room Air 06/30/24 07:51 37.0 C 83 18 155/79 H 97 Nasal Cannula 06/30/24 05:42 86 O2 Flow Rate 06/30/24 11:51 06/30/24 07:51 1 06/30/24 05:42 Laboratory Results Laboratory Results - last 48 hr 06/29/24 06/29/24 06/30/24 07:47 15:14 06:43 WBC 10.96 H RBC 4.95 Hgb 13.7 L Hct 43.7 MCV 88.3 MCH 27.7 MCHC 31.4 L RDW Std Deviation 46.5 H RDW Coeff of Zach 14.6 H Plt Count 102 L MPV 11.3 Immature Gran % (Auto) 0.3 Neut % (Auto) 65.9 Lymph % (Auto) 19.6 Gordon % (Auto) 9.3 Eos % (Auto) 3.6 Baso % (Auto) 1.3 Neut # (Auto) 7.23 H Lymph # (Auto) 2.15 Gordon # (Auto) 1.02 H Eos # (Auto) 0.39 Baso # (Auto) 0.14 Immature Gran # (Auto) 0.03 Sodium 159 H* 157 H* 153 H Potassium 3.4 L 3.5 3.6 Chloride 126 H 127 H 124 H Carbon Dioxide 27 24 24 Anion Gap 6 6 5 BUN 35 H 32 H 25 H Creatinine 1.61 H 1.51 H 1.45 H Est Cr Clr Drug Dosing 39.6 42.3 44.0 Est GFR ( Amer) 47.8 51.6 54.2 Est GFR (Non-Af Amer) 41.2 44.5 46.8 BUN/Creatinine Ratio 21.7 H 21.2 H 17.2 Glucose 137 H 137 H 123 H Calcium 10.5 H 10.2 9.6 PG Care Time/CCT Total # of Minutes Spent Total Time Spent with Patient: Total time spent is greater than 50% in coordination of care (as documented) at patient's floor/unit and/or counseling patient: Coding Level of Care Code 02920 SUB INP/OBS CARE 2/35MIN Diagnoses Hypercalcemia E83.52 LATOSHA (acute kidney injury) N17.9 Agitation R45.1 Leukocytosis D72.829 Acute metabolic encephalopathy G93.41 Fever R50.9 Hypernatremia E87.[address] scan R93.5 Elevated blood pressure reading without diagnosis of hypertension R03.0
[2024-07-01 07:25] LABS: BUN Creatinine Ratio 14.6 (10-20); Calcium 8.6 mg/dl (8.6-10.3); Creatinine Clr Calc Pharmacy 46.6 ml/min; Est GFR (African American) 58.1 ml/min; Est GFR (Non-African American) 50.1 ml/min; Potassium 3.8 mmol/L (3.5-5.1)
--- NOTE | 2024-07-01 17:21 | Hospitalist Progress Note ---
Date of Service July 01, 2024 Assessment & Plan (1) Hypercalcemia: Plan: resolved s/p IV fluids since admission, calcitonin SC, and zometa 4mg IV x 1 to keep calcium levels in check over the next few weeks with his total protein and globulin being elevated, anemia/thrombocytopenia present, weight loss, extensive lymphadenopathy in various locations on chest CT, etc this is all worrisome for a bone marrow disorder such as multiple myeloma, lymphoma, etc. SPEP/UPEP sent & pending flow cytometry sent & pending intact PTH is low ruling out hyperparathyroidism 25-OH vit D level is not elevated likely to need oncology evaluation, bone marrow bx, immunofixation, etc IF patient desires; son has told me 2x that his father will likely decline any work-up/treatment/etc. doubt sarcoid although KD level dispatched (2) LATOSHA (acute kidney injury): Plan: BUN 37, creatinine 2.05 at admission most recent baseline Cr of 0.91 in [address] a/p [facility] remains Cr has improved to 1.37 with hydration Cont hypotonic fluids - can reduce rate to 50cc/hr later tonight Check BMP am (3) Agitation: Plan: likely due to hypercalcemia, hypernatremia, etc. 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 I don't think he would tolerate an MRI brain - too agitated at times (4) Leukocytosis: Plan: resolved did have recent fevers but no infectious process found urine cx negative COVID negative cxr w/o obvious pneumonia lyme negative anaplasmosis & babesia screens negative elected to obtain CT chest/abd/pelvis to look for malignancy and other causes of fever - CT a/p with ?pancreatitis, otherwise negative; CT chest with extensive lymphadenopathy in various lymph groups - worrisome for lymphoproliferative d/o which could in and of itself cause fever consider CT face - r/o dental infection (very poor teeth, foul odor from mouth) (5) Acute metabolic encephalopathy: Plan: as above ongoing if pancreatitis is truly present that could contribute hypernatremia will cause confusion/lethargy recent hypercalcemia will cause such for sure cont supportive care restraint order renewed -- soft mitts for hands needed to prevent self-injury and pulling at IVs (6) Fever: Plan: etiology? could be malignancy-related could be 2nd to pancreatitis consider full biofire resp panel consider dental abscess given his severe dental decay cont rocephin IV empirically while awaiting blood cx's thus far blood cx's are negative (7) Hypernatremia: Plan: stop D5W change to D5 1/2 NS - run at 50ml/hr peak Na level 159 now 147 serial BMPs (8) Abnormal abdominal CT scan: Plan: ?pancreatitis on CT a/p certainly hypercalcemia can cause pancreatitis but his lipase was wnl this morning further, no obvious abd pain or other GI symptoms uncertain of significance of the CT findings cont IV fluids low fat diet (9) Elevated blood pressure reading without diagnosis of hypertension: Plan: SBPs remain very high - 180s/190s 2nd to hypercalcemia? does patient have pre-existing essential HTN? or is BP high simply due to agitation? cont metoprolol 25mg BID (If he will take it) hydralazine 5mg IV q8h prn Plan updated pt's son extensively by phone 06/27/24 and again 06/29/24 very poor prognosis strongly consider formal palliative care consultation Admission and Anticipated Discharge Date Admission Date: June 26, 2024 Subjective patient awake but his speech still remains very hard to understand appetite remains very poor still gets very agitated and combative at times thus requiring ongoing use of soft mitts on hands Review of Systems Review of Systems: Unobtainable due to cognitive status Physical Exam Physical Exam: gen - awake, talking but nearly impossible to understand his speech; I was able to complete a full exam today; soft mitts on hands; very thin, disheveled mouth - MM more moist today, very poor dentition, malodor from oral cavity neck - no JVD heart - RRR, s1 s2, no murmur lungs - CTA b/l abd - soft NT ND BS+ ext - very thin, pulses 2+ b/l psych - oriented to person only Results & Data Results & Data Vital Signs (Past 12 Hours) Vital Signs Temp Pulse Pulse Resp BP Pulse Ox O2 Del Method 07/01/24 14:12 37.4 C 79 18 150/76 H 96 Room Air 07/01/24 09:50 80 07/01/24 07:31 36.9 C 97 H 18 145/88 H 92 Room Air 07/01/24 07:27 Room Air 07/01/24 06:36 37 C 92 H 18 158/85 H 98 Room Air Laboratory Results Laboratory Results - last 24 hr 07/01/24 06:13 Sodium 147 H Potassium 3.8 Chloride 119 H Carbon Dioxide 22 Anion Gap 6 BUN 20 Creatinine 1.37 Est Cr Clr Drug Dosing 46.6 Est GFR ( Amer) 58.1 Est GFR (Non-Af Amer) 50.1 BUN/Creatinine Ratio 14.6 Glucose 118 H Calcium 8.6 PG Care Time/CCT Total # of Minutes Spent Total Time Spent with Patient: Total time spent is greater than 50% in coordination of care (as documented) at patient's floor/unit and/or counseling patient: Coding Level of Care Code 85096 SUB INP/OBS CARE 2/35MIN Diagnoses Hypercalcemia E83.52 LATOSHA (acute kidney injury) N17.9 Agitation R45.1 Leukocytosis D72.829 Acute metabolic encephalopathy G93.41 Fever R50.9 Hypernatremia E87.[address] scan R93.5 Elevated blood pressure reading without diagnosis of hypertension R03.0
[2024-07-01] MEDS: D5NSS + 20MEQ KCL 20 MEQ/1,000 ML BAG IV SCH (20:33)
[2024-07-02] MEDS: THIAMINE HCL 200 MG in SODIUM CHLORIDE 0.9% 50 ML IV SCH (07:57)
[2024-07-02 08:03] LABS: Albumin 3.2 g/dL (3.8-4.8); Alpha 1 Globulin 0.3 g/dL (0.2-0.3); Alpha 2 Globulin 0.7 g/dL (0.5-0.9); Angiotensin Converting Enzyme 44 U/L (9-67); Beta-1-Globulin 0.4 g/dL (0.4-0.6); Beta-2-Globulin 0.7 g/dL (0.2-0.5); Gamma Globulin 2.6 g/dL (0.8-1.7); Monoclonal Protein Band 1 DNR g/dL (NONE DETECTED); Monoclonal Protein Band 2 DNR g/dL (NONE DETECTED); Monoclonal Protein Band 3 DNR g/dL (NONE DETECTED); Total Protein 7.9 g/dL (6.1-8.1)
[2024-07-02 08:19] LABS: Basophils # (auto) 0.11 K/uL (0.00-0.20); Basophils % (auto) 0.9 %; Eosinophils # (auto) 0.96 K/uL (0.00-0.50); Eosinophils % (auto) 7.8 %; Hematocrit (blood only) 41.1 % (42.0-52.0); Hemoglobin 13.5 g/dl (14.0-18.0); Immature Granulocytes # (auto) 0.05 K/uL (0.01-0.20); Immature Granulocytes % (auto) 0.4 %; Lymphocytes # (auto) 2.11 K/uL (1.20-3.40); Lymphocytes % (auto) 17.2 %; Mean Corpuscular Hemoglobin 28.4 pg (25.0-34.0); Mean Corpuscular Hgb Conc 32.8 g/dL (32.0-36.0); Mean Corpuscular Volume 86.3 fL (80.0-100.0); Mean Platelet Volume 12.7 fL (9.4-12.4); Monocytes % (auto) 7.3 %; Neutrophils # (auto) 8.17 K/uL (1.40-6.50); Neutrophils % (auto) 66.4 %; Platelet Count 125 K/uL (130-400); RDW Coefficient of Variation 14.6 % (11.5-14.5); RDW Standard Deviation 45.7 fL (36.4-46.3); Red Blood Count 4.76 M/uL (4.70-6.10)
[2024-07-02 08:36] LABS: BUN Creatinine Ratio 17.9 (10-20); Creatinine Clr Calc Pharmacy 60.2 ml/min; Est GFR (African American) 79.2 ml/min; Est GFR (Non-African American) 68.3 ml/min; Magnesium 1.9 mg/dl (1.7-2.4); Potassium 3.9 mmol/L (3.5-5.1)
[2024-07-02 11:13] LABS: Adenovirus PCR Not Detected (NotDetected); Bordetella parapertussis PCR Not Detected (NotDetected); Bordetella pertussis PCR Not Detected (NotDetected); Chlamydia pneumoniae PCR Not Detected (NotDetected); Coronavirus 229E PCR Not Detected (NotDetected); Coronavirus CoV-2 (COVID19)PCR Not Detected (NotDetected); Coronavirus HKU1 PCR Not Detected (NotDetected); Coronavirus NL63 PCR Not Detected (NotDetected); Coronavirus OC43PCR Not Detected (NotDetected); Human Metapneumovirus PCR Not Detected (NotDetected); Influenza A PCR Not Detected (NotDetected); Influenza B PCR Not Detected (NotDetected); Mycoplasma pneumoniae PCR Not Detected (NotDetected); Parainfluenza Virus 1 PCR Not Detected (NotDetected); Parainfluenza Virus 2 PCR Not Detected (NotDetected); Parainfluenza Virus 3 PCR Not Detected (NotDetected); Parainfluenza Virus 4 PCR Not Detected (NotDetected); Respiratory Syncytial VirusPCR Not Detected (NotDetected); Rhinovirus/Enterovirus PCR Not Detected (NotDetected)
[2024-07-02 13:43] LABS: Creatinine Ur 62 mg/dL (20-320); Protein, Urine Random 35 mg/dL (5-25); Ur Albumin % 49 %; Ur Alpha-1-globulin % 6 %; Ur Alpha-2-globulin % 7 %; Ur Beta Globulin % 18 %; Ur Gamma Globulin % 21 %; Ur Protein/Creat Ratio mg/g 565 mg/g creat (25-148); Urine Abnormal Protein Band 1 DNR mg/dL (NONE DETECTED); Urine Abnormal Protein Band 2 DNR mg/dL (NONE DETECTED); Urine Abnormal Protein Band 3 DNR mg/dL (NONE DETECTED); Urine Protein/Creatinine Ratio 0.565 (0.025-0.148)
--- NOTE | 2024-07-02 19:21 | Hospitalist Progress Note ---
Date of Service July 02, 2024 Assessment & Plan (1) Hypercalcemia: Plan: resolved s/p IV fluids since admission, calcitonin SC, and zometa 4mg IV x 1 to keep calcium levels in check over the next few weeks with his total protein and globulin being elevated, anemia/thrombocytopenia present, weight loss, extensive lymphadenopathy in various locations on chest CT, etc this is all worrisome for a bone marrow disorder such as lymphoma, etc. SPEP/UPEP returned - UPEP neg; faint M spike on SPEP flow cytometry sent & pending intact PTH is low ruling out hyperparathyroidism 25-OH vit D level is not elevated would need oncology evaluation, bone marrow bx, immunofixation, etc son has told me numerous times this past week that his father would not want any additional work-up/treatment/etc. doubt sarcoid although KD level dispatched (2) LATOSHA (acute kidney injury): Plan: BUN 37, creatinine 2.05 at admission most recent baseline Cr of 0.91 in [address] a/p Solis remains Cr has improved to 1 with hydration Cont D5 1/2NS @ 50cc/hr (3) Agitation: Plan: ongoing initially was thought 2nd hypercalcemia, hypernatremia, etc. 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 I don't think he would tolerate an MRI brain - too agitated Would not tolerate an LP - would need heavy sedation (4) Leukocytosis: Plan: had resolved, then returned this am with WBC count of 12 urine cx negative COVID negative cxr w/o obvious pneumonia lyme negative anaplasmosis & babesia screens negative; anaplasmosis DNA pending respiratory BioFire panel today negative elected to obtain CT chest/abd/pelvis to look for malignancy and other causes of fever - CT a/p with ?pancreatitis, otherwise negative; CT chest with extensive lymphadenopathy in various lymph groups - worrisome for lymphoproliferative d/o which could in and of itself cause fever consider CT face - r/o dental infection (very poor teeth, foul odor from mouth) - but defer for now (5) Acute metabolic encephalopathy: Plan: as above ongoing severe agitation requiring use of soft mitts altered MS has not resolved despite correction of high calcium & high sodium would need additional w/u in light of fevers, confusion, etc but unlikely to tolerate those tests (MRI Brain, etc) see below remains on empiric IV thiamine (6) Fever: Plan: etiology? could be malignancy-related could be 2nd to recent pancreatitis full biofire resp panel today negative consider dental abscess as cause given his severe dental decay but would need facial imaging likely transitioning to comfort care -- defer on additional work-up (7) Hypernatremia: Plan: peak Na level 159 now 145 remains on D5 1/2 NS (8) Abnormal abdominal CT scan: Plan: ?pancreatitis on CT a/p certainly hypercalcemia can cause pancreatitis but his lipase has been normal x 2 perhaps the pancreatitis was a few weeks before admission and resolved biochemically by time of admission?? other explanation? either way cont IV fluids low fat diet but patient with severe anorexia (9) Elevated blood pressure reading without diagnosis of hypertension: Plan: cont metoprolol 25mg BID (If he will take it) hydralazine 5mg IV q8h prn Plan updated pt's son extensively by phone 06/27/24, 06/29/24, and again today - 07/02/24 discussed ongoing severe agitation & altered mental status discussed likelihood of malignancy (lymphoma, etc) discussed failure to thrive, severe anorexia, etc. discussed what it would take to get him thru the hospital stay (MRI brain, ?LP, other testing) in light of his father's previous beliefs (not wanting work-up & treatment for various conditions, not wanting work-up for abnormal labs, etc) I do believe our best option is transitioning to a comfort-care pathway pt's son Harman agrees with such will start some morphine IV prn for him tonight will ask palliative care to see him tomorrow Admission and Anticipated Discharge Date Admission Date: June 26, 2024 Subjective unable to obtain any meaningful history or review of systems SEVERELY confused during my visit agitated, even combative - with his soft mitts in place he did try to hit me 1x while I was visiting with him he was actively hallucinating, talking to someone not present in the room yelling out, using expletives frequently at one point he told me to "f--- off" I did not complete a physical exam due to severe agitation and concern for safety Review of Systems Review of Systems: Unobtainable due to cognitive status Physical Exam Physical Exam: gen - awake, hallucinating, agitated, yelling out, difficult to understand his speech at times, swearing mouth - very poor dentition, malodor from oral cavity a little better extremities - warm, no edema, pulses 2+ b/l psych - oriented to person only rest of exam deferred Results & Data Results & Data Vital Signs (Past 12 Hours) Vital Signs Temp Pulse Resp BP Pulse Ox O2 Del Method 07/02/24 14:46 36.8 C 85 18 138/84 95 Room Air 07/02/24 07:35 37.6 C H 81 18 173/87 H 93 Room Air Laboratory Results Laboratory Results - last 24 hr 06/27/24 06/27/24 07/02/24 09:33 Unknown 07:58 WBC 12.30 H RBC 4.76 Hgb 13.5 L Hct 41.1 L MCV 86.3 MCH 28.4 MCHC 32.8 RDW Std Deviation 45.7 RDW Coeff of Zach 14.6 H Plt Count 125 L MPV 12.7 H Immature Gran % (Auto) 0.4 Neut % (Auto) 66.4 Lymph % (Auto) 17.2 Eddy % (Auto) 7.3 Eos % (Auto) 7.8 Baso % (Auto) 0.9 Neut # (Auto) 8.17 H Lymph # (Auto) 2.11 Eddy # (Auto) 0.90 H Eos # (Auto) 0.96 H Baso # (Auto) 0.11 Immature Gran # (Auto) 0.05 Sodium 145 Potassium 3.9 Chloride 119 H Carbon Dioxide 19 L Anion Gap 7 BUN 19 Creatinine 1.06 D Est Cr Clr Drug Dosing 60.2 Est GFR ( Amer) 79.2 Est GFR (Non-Af Amer) 68.3 BUN/Creatinine Ratio 17.9 Glucose 105 H Calcium 8.0 L Magnesium 1.9 Total Protein (PEP) 7.9 Albumin (PEP) 3.2 L Tlqtp-7-Vevbedqev 0.3 Cvdyt-2-Einldezdf 0.7 Ulyx-5-Kspaduwb 0.4 Vjxs-7-Nlvawkvd 0.7 H Gamma Globulins 2.6 H Monoclonal Peak 3 DNR Ser Monoclonl Protein DNR Ser Monoclonal Prot 2 DNR PEP Interpretation SEE NOTE Lipase 25 Angiotensin Convert Enz 44 U Random Total Protein 35 H Ur Creatinine mg/dL 62 Protein/Creatinin Ratio 0.565 H Urine Albumin (%) 49 U Qmxmg-4-Vqnocdnw (%) 6 U Ddtjx-6-Uxmbpeee (%) 7 U Beta Globulin (%) 18 U Gamma Globulin (%) 21 U Abnormal Prot Band 1 DNR U Abnormal Prot Band 2 DNR U Abnormal Prot Band 3 DNR Urine PEP Interpret SEE NOTE Adenovirus (PCR) A. phagocytophilum DNA Pending B. pertussis DNA (PCR) B.parapertussis DNA PCR C. pneumoniae DNA (PCR) Coronavirus OC43 (PCR) Coronavirus HKU1 (PCR) Coronavirus 229E (PCR) SARS-CoV-2 (PCR) Coronavirus NL63 (PCR) Human Metapneumovir PCR Influenza Type A (PCR) Influenza Type B (PCR) M. pneumoniae (PCR) Parainfluenza 1 (PCR) Parainfluenza 2 (PCR) Parainfluenza 3 (PCR) Parainfluenza 4 (PCR) RSV (PCR) Entero/Rhino (PCR) 07/02/24 09:09 WBC RBC Hgb Hct MCV MCH MCHC RDW Std Deviation RDW Coeff of Zach Plt Count MPV Immature Gran % (Auto) Neut % (Auto) Lymph % (Auto) Eddy % (Auto) Eos % (Auto) Baso % (Auto) Neut # (Auto) Lymph # (Auto) Eddy # (Auto) Eos # (Auto) Baso # (Auto) Immature Gran # (Auto) Sodium Potassium Chloride Carbon Dioxide Anion Gap BUN Creatinine Est Cr Clr Drug Dosing Est GFR ( Amer) Est GFR (Non-Af Amer) BUN/Creatinine Ratio Glucose Calcium Magnesium Total Protein (PEP) Albumin (PEP) Mkmth-8-Emgljzkzz Ujknw-0-Zmodacrvg Dfek-6-Txjhszen Doqq-7-Dmnsveca Gamma Globulins Monoclonal Peak 3 Ser Monoclonl Protein Ser Monoclonal Prot 2 PEP Interpretation Lipase Angiotensin Convert Enz U Random Total Protein Ur Creatinine mg/dL Protein/Creatinin Ratio Urine Albumin (%) U Matbn-2-Afvkrqyj (%) U Dnsnf-8-Udyakygq (%) U Beta Globulin (%) U Gamma Globulin (%) U Abnormal Prot Band 1 U Abnormal Prot Band 2 U Abnormal Prot Band 3 Urine PEP Interpret Adenovirus (PCR) Not Detected A. phagocytophilum DNA B. pertussis DNA (PCR) Not Detected B.parapertussis DNA PCR Not Detected C. pneumoniae DNA (PCR) Not Detected Coronavirus OC43 (PCR) Not Detected Coronavirus HKU1 (PCR) Not Detected Coronavirus 229E (PCR) Not Detected SARS-CoV-2 (PCR) Not Detected Coronavirus NL63 (PCR) Not Detected Human Metapneumovir PCR Not Detected Influenza Type A (PCR) Not Detected Influenza Type B (PCR) Not Detected M. pneumoniae (PCR) Not Detected Parainfluenza 1 (PCR) Not Detected Parainfluenza 2 (PCR) Not Detected Parainfluenza 3 (PCR) Not Detected Parainfluenza 4 (PCR) Not Detected RSV (PCR) Not Detected Entero/Rhino (PCR) Not Detected PG Care Time/CCT Total # of Minutes Spent Total Time Spent with Patient: Total time spent is greater than 50% in coordination of care (as documented) at patient's floor/unit and/or counseling patient: Coding Level of Care Code 79409 SUB INP/OBS CARE 2/35MIN Diagnoses Hypercalcemia E83.52 LATOSHA (acute kidney injury) N17.9 Agitation R45.1 Leukocytosis D72.829 Acute metabolic encephalopathy G93.41 Fever R50.9 [address]87[address] scan R93.5 Elevated blood pressure reading without diagnosis of hypertension R03.0
[2024-07-03] MEDS: MoRPHine SULFATE 2 MG/ML CARP IV PRN (03:01)
--- NOTE | 2024-07-03 10:15 | Palliative Care Consultation ---
Date of Consultation July 03, 2024 Assessment & Plan (1) Need for comfort care: CULLET CRUSHER orders written (2) Weakness generalized: (3) Altered mental status: Altered mental status type: delirium Qualified Code(s): R41.0 - Disorientation, unspecified (4) Agitation: Ativan 1mg IV q3h prn ordered In addition he has Zyprexa 5mg IM, would suggest using a few doses of ativan sequentially to reduce his spastic agitation (5) Acute metabolic encephalopathy: (6) Admission for end of life care: (7) Palliative care by specialist: Plan As above, CULLET CRUSHER Thank you for allowing us to participate in the ongoing care of this patient. Please page with any additional concerns. Monika Dawkins DNP Director, Palliative Medicine History of Present Illness Reason for Consultation: On 07/02/24 @ 09:22 Bobby Jules Wrote To Mariana Dawkins likely lymphoma or other lymphoproliferative d/o Attending Physician: Sharlene Altamirano MD History of Present Illness Jack is a 74-year-old gentleman admitted 06/26/2024 with fever, hypercalcemia, dehydration agitation, leukocytosis, and acute metabolic encephalopathy. Since his IV fluids, calcitonin SC and Zometa 4 mg IV, his hypercalcemia resolved. His total protein and globulin are elevated, there is anemia and thrombocytopenia present, he has ongoing issues with weight loss and extensive lymphadenopathy in various locations on chest CT which are overall concerning for a bone marrow concern such as lymphoma. SPEP/UPEP returned and UPEP is negative, faint M spike on SPEP. Flow cytometry is pending. Intact PTH is low and hyperparathyroidism is therefore not suspected. Oncology evaluation has been offered for further bone marrow biopsy and immunofixation etc. however the son is advised primary team that patient would not wish to have further additional workup or treatment. Unfortunately he is too agitated to tolerate an MRI of the brain. LP has not been done because of the increased need for heavy sedation. His bio fire was negative. Chest x-ray is clear with no obvious pneumonia. COVID testing is negative. Lyme is negative. In spite of correcting his high calcium and high sodium, his altered mental status has not improved. He requires ongoing management of his severe agitation and the acute metabolic encephalopathy persists. He remains on empiric IV thiamine. Etiology of his fever suspected to be malignancy related. Could be questionably due to a pancreatitis. Incidentally, it was noted he has very severe dental decay and a dental abscess could be considered however he would then need facial imaging and it is unlikely he would tolerate that due to agitation. Per primary team notes, extensive conversations were held with the son on , 06/29 and 07/02/2024. Overall patient has persistent and ongoing severe agitation, AMS, likely malignancy, failure to thrive, severe anorexia, and the testing that needs to be done to further determine the issues are not test he can tolerate or we can accomplish such as an MRI of the brain or LP. Son has indicated that due to patient's known beliefs of not desiring aggressive care, invasive workup or evaluation that a transition to comfort care would be more in line with what patient would want for himself. Patient was transition to comfort care yesterday. Palliative medicine has been consulted to assist with pain and symptom management for end-of-life care. Jack remains agitated and restless no family present unable to provide HPI Allergies Allergy/AdvReac Type Severity Reaction Status Date / Time No Known Allergies Allergy Verified 06/26/24 20:40 Home Medications Medication Instructions Recorded Confirmed Type naproxen 500 mg tablet 500 mg PO BID PRN pain #60 tabs 05/11/24 06/26/24 Rx saw palmetto 450 mg capsule 450 mg PO DAILY PRN when he 06/26/24 06/26/24 History remembers to take Patient History Medical History Right knee pain Bilateral carpal tunnel syndrome Family History Other No pertinent family history Denies family history of Ovarian cancer Prostate cancer Myocardial infarction Breast cancer Colorectal cancer Social History Smoking Status: Unknown if ever smoked Second Hand Exposure: No; Do You Dip or Chew Tobacco: No; Hx Alcohol Use: No (KURT) Hx Substance Use: No (KURT) Preferred Language: Cymro Communication Ability Comment: KURT Visual Impairment: No Limitations Hearing Ability: Normal Pretzel Cooker Required: No marital status: Current Living Situation: Alone current occupational status: employed 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 [employer] How many Children do You have: 4 Feels Safe at Home: Yes Childhood Exposure to Second-Hand Smoke: Yes Diet: regular caffeine: No Dental Care, Regularly: No Physical Activity Frequency: Does not Exercise Seatbelt Use: never Sunscreen Use: No Do you think of yourself as: straight/heterosexual Gender Identity: Male Assistive Devices: Cane Review of Systems 2 Review of Systems: Unobtainable due to cognitive status and Unobtainable due to reduced consciousness Physical Exam Physical Exam: elderly male, agitated and restless, crying out, garbled speech bitemp wasting perrla dentition poor, signif halitosis neck supple unable to follow commands does not allow signif exam limited anterior exam with ?rhonchi, ?diminished tachy s1s2 agitated, restless, crying out at times Results & Data Laboratory Results See HPI Diagnostic Findings See HPI PG Care Time/CCT Total # of Minutes Spent Total Time Spent: 70 Total Time Spent with Patient: Total time spent is greater than 50% in coordination of care (as documented) at patient's floor/unit and/or counseling patient: I spent 70 minutes overall addressing this case: 15 min in medical data review/discussion with referring provider(s) and/or preparation for the visit 25 min in direct interaction with the patient/exam 00 min in Advance Care Planning/Goals of Care discussions as detailed above in note (must be >16min) 15 min in subsequent review and synthesis of assessment and plan 15 min communicating with other providers regarding the patient's case: [place] [address] IN/OBS CONSULT LVL 4,60M Patient Type New History Comprehensive Exam Comprehensive Medical Decision Making High Complexity Diagnoses Need for comfort care Weakness generalized R53.1 Altered mental status R41.0 Altered mental status type: delirium Agitation R45.1 Acute metabolic encephalopathy G93.41 Admission for end of life care Z51.5 Palliative care by specialist Z51.5
[2024-07-03] MEDS ORDERED: ONDANSETRON INJ 2 MG/ML 2 ML VIAL IV PRN (12:17)
[2024-07-03] MEDS ORDERED: LORazepam 2 MG/1 ML VIAL IV PRN (12:17)
[2024-07-03] MEDS ORDERED: MoRPHine SULFATE 2 MG/ML CARP IV PRN (12:28)
[2024-07-03] MEDS: LORazepam 2 MG/1 ML VIAL IV PRN (14:22)
--- NOTE | 2024-07-03 18:22 | Hospitalist Progress Note ---
Date of Service July 03, 2024 Assessment & Plan (1) Acute metabolic encephalopathy: Plan: 74 y/o man admitted with hypercalcemia to 14.6 after being found down by his son, confused and hallucinating severe encephalopathy has not resolved despite correction of high calcium & high sodium, empiric IV thiamine could be metabolic, brain MRI, LP etc unable to be obtained because of ongoing severe agitation overall picture consistent with malignancy his son has reported that Jack was known to have enlarged LNs in the past and did not desire further workup or treatment, and reiterated that he would not want treatment for malignancy would prefer comfort care comfort care initiated, consulted Dr. Dawkins -will require treatment for severe agitation -continue PRN IV lorazepam -has duron catheter - leave in place -treat any other pain or discomfort as it arises (2) Hypercalcemia: Plan: resolved s/p IV fluids since admission, calcitonin SC, and zometa 4mg IV x 1 to keep calcium levels in check over the next few weeks overall picture suspicious for lymphoma SPEP/UPEP returned - UPEP neg; faint M spike on SPEP flow cytometry and KD sent & pending intact PTH is low ruling out hyperparathyroidism 25-OH vit D level is not elevated treated with IV fluids calcitonin and Zometa and resolved, nonetheless his mental status did not improve (3) LATOSHA (acute kidney injury): Plan: BUN 37, creatinine 2.05 at admission no obstruction on CT a/p Resolved with IV fluids (4) Leukocytosis: Plan: has had leukocytosis and intermittent fever urine cx negative COVID negative cxr w/o obvious pneumonia lyme negative anaplasmosis & babesia screens negative; anaplasmosis DNA pending BioFire panel negative considered facial CT for poor dentition elected to obtain CT chest/abd/pelvis to look for malignancy and other causes of fever - CT a/p with ?pancreatitis, otherwise negative; CT chest with extensive lymphadenopathy in various lymph groups - worrisome for lymphoproliferative disorder which could in and of itself cause fever (5) Hypernatremia: Plan: peak Na level 159, corrected to 145 with IV fluids (6) Abnormal abdominal CT scan: Plan: appearance of pancreatitis on CT a/p with normal lipase x 2 certainly hypercalcemia can cause pancreatitis perhaps the pancreatitis was a few weeks before admission and resolved biochemically by time of admission Admission and Anticipated Discharge Date Admission Date: June 26, 2024 Subjective remains severely encephalopathic unable to produce clear speech eyes open during my interview however he is simultaneously snoring, not able to follow commands or cooperate with exam Physical Exam Physical Exam: PHYSICAL EXAMINATION Last 24h vital signs reviewed, see documentation in flowsheet General: ill-appearing gentleman currently calm HEENT: sclerae anicteric, PERRL, snoring while awake, dry mucous membranes extremely poor dentition Lungs: Normal respiratory effort. Clear to auscultation bilaterally. No RRW Heart: Regular rate and rhythm, no murmurs. No JVD Abdomen: Soft, nontender, nondistended. Bowel sounds present. Extremities: Warm, dry, well-perfused. No extremity edema. Neuro: awake but snoring, irregular respiratory pattern, nonverbal few attempts at speech are extremely garbled, face is symmetric observed to move 4 extremities Psych: not currently agitated PG Care Time/CCT Total # of Minutes Spent Total Time Spent with Patient: Total time spent is greater than 50% in coordination of care (as documented) at patient's floor/unit and/or counseling patient: Coding Level of Care Code 26450 SUB INP/OBS CARE 2/35MIN Diagnoses Acute metabolic encephalopathy G93.41 Hypercalcemia E83.52 LATOSHA (acute kidney injury) N17.9 Leukocytosis D72.829 Hypernatremia E87.[address] scan R93.5
--- NOTE | 2024-07-03 21:34 | Death Pronouncement Note ---
Date of Service July 03, 2024 Pronouncement Note Admission Date June 26, 2024 Date and Time of Date of : 07/03/24 Time of : 21:15 Preliminary Cause of (1) Acute metabolic encephalopathy: (2) Leukocytosis: (3) LATOSHA (acute kidney injury): (4) Hypercalcemia: Additional Data Confirmation of : no pulse, no respirations, no heart sounds and pupils fixed and dilated Pronouncement Performed By: Resident Physician Family: contacted Attending/PCP notified?: Yes Attending physician: Sharlene Altamirano MD Was code activated?: No
--- NOTE | 2024-07-04 15:49 | Discharge Summary ---
Discharge Summary Date of Service July 03, 2024 Principal Dx & Hospital Course #1 = Principal Diagnosis (1) Acute metabolic encephalopathy: 74 y/o man admitted with hypercalcemia to 14.6 after being found down by his son, confused and hallucinating severe encephalopathy did not resolve despite correction of high calcium & high sodium, empiric IV thiamine could be metabolic. brain MRI and LP were unable to be obtained because of ongoing severe agitation overall picture consistent with malignancy his son has reported that Jack was known to have enlarged LNs in the past and did not desire further workup or treatment, and reiterated that he would not want treatment for malignancy would prefer comfort care comfort care initiated 07/02-07/03. Jack later same evening. (2) Hypercalcemia: resolved treated with IV fluids, calcitonin SC, and zometa 4mg IV x 1 overall picture suspicious for malignancy SPEP/UPEP returned - UPEP neg; faint M spike on SPEP flow cytometry and KD sent & pending intact PTH is low ruling out hyperparathyroidism 25-OH vit D level is not elevated (3) LATOSHA (acute kidney injury): BUN 37, creatinine 2.05 at admission no obstruction on CT a/p Resolved with IV fluids (4) Leukocytosis: has had leukocytosis and intermittent fever urine cx negative COVID negative cxr w/o obvious pneumonia lyme negative anaplasmosis & babesia screens negative; anaplasmosis DNA pending [employer] panel negative considered facial CT for poor dentition elected to obtain CT chest/abd/pelvis to look for malignancy and other causes of fever - CT a/p with ?pancreatitis, otherwise negative; CT chest with extensive lymphadenopathy in various lymph groups - worrisome for malignancy especially lymphoproliferative disorder which could in and of itself cause fever (5) Hypernatremia: peak Na level 159, corrected to 145 with IV fluids (6) Abnormal abdominal CT scan: appearance of pancreatitis on CT a/p with normal lipase x 2 certainly hypercalcemia can cause pancreatitis perhaps the pancreatitis was a few weeks before admission and resolved biochemically by time of admission Admission HPI Per Admitting Provider Jack is a 74-year-old male with unknown PMH. Patient presented with his son on 06/26 for altered mental status and agitation. Son found patient lying on the floor yesterday evening (06/25) and reports that he was having hallucinations; believed he was being attacked by the drug cartel; EMS was called at that time, but patient refused transport. He has had continued hallucinations today, and was brought in by his son. Patient lives alone. Son reports that this is an acute change in cognitive baseline, and he is unsure of his last known well. Patient was found on the floor, and son suspects that he had an unwitnessed fall; he was unable to stand on his own at that time. Patient repeatedly says that he is going to leave AMA. Patient's son reports that there is no medical proxy/POA paperwork and affect. The only medication patient takes on daily basis is naproxen for arthritis; he denies using any TUMS; uses Pepto-Bismol as needed for stomach discomfort. Patient is not amenable to providing history at this time. Per son, no history of strokes. He did have a blood test 2.5 years ago that detected a potential cancer, but patient refused to have this worked up. Patient is hypertensive at 197/154 at time of admission; vitals otherwise stable. ED course: NSS 500 mL IV Unable to obtain ROS in patient's current state. Please see Dr. Lezama's attestation for any changes to treatment plan overnight. Discharge Plan Discharge Items Patient Disposition: Discharge Diagnosis: Metabolic Encephalopathy Hypercalcemia LATOSHA Other Date/Time: 07/03/24 21:15 Hospital Stay Data Consultations 06/26/24 20:04 ED Decision to Admit Stat 07/02/24 09:22 Consult Palliative Care Routine Diagnostic Imagining Performed 06/26/24 17:33 CT head/brain wo con Stat 06/28/24 11:16 CT abd pelvis wo con Routine CT chest diagnostic wo con Routine Total Time Total Time Spent Total Time Spent (In Minutes): <30 Coding Level of Care Code None Diagnoses Acute metabolic encephalopathy G93.41 Hypercalcemia E83.52 LATOSHA (acute kidney injury) N17.9 Leukocytosis D72.829 Hypernatremia E87.[address] scan R93.5
== END 2024-07-03 23:05 | disposition expired | DRG 682 ==
LOC: ED 16:42 → SUATTDRO 21:06 → 2W 21:06 → 3E 07-01 06:35